=== PATIENT | female | born 1960 | race Caucasian/White ===

== ENCOUNTER 2023-11-02 15:32 | Emergency (ER) | payer MEDICARE, OTHER ==
[2023-11-02] MEDS ORDERED: Ondansetron PF 4 MG/2 ML Vial ONE (17:06)
[2023-11-02 17:57] LABS: #Basophils 0.02 10x3/uL (0.0-0.2); #Eosinphils 0.02 10x3/uL (0.0-0.5); #Monocytes 0.74 10x3/uL (0.0-1.1); #Neutrophils 5.39 10x3/uL (1.5-8.4); %Basophils 0.2 % (0.0-2.0); %Eosinophils 0.2 % (0.0-6.0); %Lymphocytes 31.3 % (18.0-47.0); %Monocytes 8.2 % (0.0-10.0); %Neutrophils 59.9 % (40.0-75.0); Hematocrit 32.6 % (34.9-44.5); Hemoglobin 10.2 g/dL (12.0-15.5); Mean Corpuscular HGB CONC 31.3 g/dL (32.0-36.0); Mean Corpuscular Hemoglobin 24.4 pg (27.0-33.0); Platelet Count 194 10x3/uL (150-450); RBC Distribution Width 16.4 % (11.5-14.5); Red Blood Cell (RBC) Count 4.18 10x6/uL (3.90-5.03)
[2023-11-02 18:09] LABS: ALT (SGPT) 26 U/L (8-55); AST (SGOT) 56 U/L (5-34); Albumin 3.4 g/dL (3.4-4.8); Alkaline Phosphatase 70 U/L (40-110); Anion Gap 16 mmol/L (10-20); BUN (Urea Nitrogen) 4 mg/dL (9.8-20.1); Bilirubin, Total 0.5 mg/dL (0.2-1.2); Calc. Creatinine Clearance 0 mL/min (70-130); Calcium 9.4 mg/dL (7.8-10.44); Carbon Dioxide 21 mmol/L (23-31); Chloride 108 mmol/L (98-107); Estimated GFR 94; Globulin 3.5 g/dL (2.4-3.5); Glucose 109 mg/dL (80-115); Lipase 38 U/L (8-78); Potassium 3.8 mmol/L (3.5-5.1); Protein, Total 6.9 g/dL (5.8-8.1); Sodium 141 mmol/L (136-145)
[2023-11-02] MEDS ORDERED: Lidocaine 2% Viscous 10 mL, Alum & Magn 30 mL SSW SCH (19:15)
[2023-11-02] MEDS ORDERED: Ketorolac Tromethamine 30 MG (1 mL) VIAL ONE (19:20)
[2023-11-02 19:46] LABS: Troponin I Less than 0.010 ng/mL (< 0.028)
== END 2023-11-02 19:30 | disposition home or self-care (01) ==
LOC: CSHERS 15:32
DX: K52.9 Noninfective gastroenteritis and colitis, unspecified (principal); I10 Essential (primary) hypertension; F17.210 Nicotine dependence, cigarettes, uncomplicated; Z55.6 Problems related to health literacy
CPT/HCPCS: 71045; 76705; 80053; 83690; 84484; 85025; 93005; 96374; 96375; 99284; J1885; J2405

== ENCOUNTER 2025-03-23 21:33 | Inpatient (IN) | payer MEDICARE ==
[2025-03-23 23:17] LABS: #Basophils Less than 0.03 10x3/uL (0.0-0.2); #Eosinophils Less than 0.03 10x3/uL (0.0-0.5); #Monocytes 0.29 10x3/uL (0.0-1.1); #Neutrophils 6.09 10x3/uL (1.5-8.4); %Basophils 0.3 % (0.0-2.0); %Eosinophils 0.0 % (0.0-6.0); %Lymphocytes 4.3 % (18.0-47.0); %Monocytes 4.3 % (0.0-10.0); %Neutrophils 90.8 % (40.0-75.0); Hematocrit 48.0 % (34.9-44.5); Hemoglobin 15.6 g/dL (12.0-15.5); Mean Corpuscular Hemoglobin 29.8 pg (27.0-33.0); Mean Corpuscular Volume 91.8 fL (81.6-98.3); Platelet Count 104 10x3/uL (150-450); Red Blood Cell (RBC) Count 5.23 10x6/uL (3.90-5.03); White Blood Cell (WBC) Count 6.71 10x3/uL (3.5-10.5)
[2025-03-23 23:24] LABS: Actual Bicarbonate (HCO3a) 25.8 mEq/L (22-28); Analyzer IN Cardio CS ICU; Base Excess (BEa) 1.1 mEq/L (-2.0 to +3.0); CO2 Tension 41.1 mmHg (35.0-45.0); Calcium, Ionized (arterial) 1.15 mmol/L (1.12-1.30); Hematocrit-ABG 47 % (36.0-47.0); Hemoglobin (Hb) 16.1 g/dL (12.0-16.0); O2 Tension (PaO2), arterial 82.0 mmHg (> 80.0); Potassium - ABG Lab 3.22 mmol/L (3.70-5.30); Puncture Site Left Brachial artery; pH, Arterial 7.415 (7.35-7.45)
[2025-03-23 23:30] LABS: ALT (SGPT) 18 U/L (Less than 34); AST (SGOT) 34 U/L (11-34); Albumin 4.0 g/dL (3.1-4.5); Alkaline Phosphatase 75 U/L (40-110); Anion Gap 15 mmol/L (10-20); BUN (Urea Nitrogen) 7 mg/dL (9.8-20.1); Bilirubin, Total 0.9 mg/dL (0.3-1.2); Calc. Creatinine Clearance 0 mL/min (70-130); Calcium 8.7 mg/dL (7.8-10.44); Carbon Dioxide 26 mmol/L (23-31); Chloride 105 mmol/L (98-107); Globulin 2.8 g/dL (2.4-3.5); Glucose 129 mg/dL (80-115); Potassium 3.4 mmol/L (3.5-5.1); Sodium 143 mmol/L (136-145)
[2025-03-23 23:34] LABS: Troponin I Less than 0.010 ng/mL (< 0.028)
[2025-03-23] MEDS ORDERED: Oseltamivir 75 MG CAP ONE (23:58)
[2025-03-24] MEDS ORDERED: Acetaminophen 325 MG TAB PO PRN (00:31)
[2025-03-24] MEDS ORDERED: Ondansetron PF 4 MG/2 ML Vial IVP PRN (00:31)
[2025-03-24] MEDS ORDERED: Senokot S 8.6-50 MG TAB PO PRN (00:31)
[2025-03-24] MEDS ORDERED: Calcium Carbonate 500 MG ChewTAB PO PRN (00:31)
[2025-03-24] MEDS ORDERED: Benzonatate 100 MG CAP ONE ×3 (01:41→14:42)
[2025-03-24] MEDS: Guaifenesin DM 100-10/5 ML UDCUP PO SCH (01:59)
[2025-03-24] MEDS: Benzonatate 100 MG CAP PO SCH ×2 (01:59→09:11)
[2025-03-24 04:57] LABS: Anion Gap 14 mmol/L (10-20); BUN (Urea Nitrogen) 7 mg/dL (9.8-20.1); Calc. Creatinine Clearance 97 mL/min (70-130); Calcium 8.4 mg/dL (7.8-10.44); Carbon Dioxide 25 mmol/L (23-31); Chloride 107 mmol/L (98-107); Glucose 189 mg/dL (80-115); Potassium 3.5 mmol/L (3.5-5.1); Sodium 142 mmol/L (136-145)
[2025-03-24] MEDS: Mometasone 200 MCG/Formoterol 5 MCG 60 PUFF INHALER INH SCH (06:45)
[2025-03-24] MEDS ORDERED: Enoxaparin 40 MG (0.4 mL) SYRINGE ONE (08:48)
[2025-03-24] MEDS ORDERED: Pantoprazole 40 MG DR.TAB ONE (08:48)
[2025-03-24] MEDS ORDERED: ALPRAZolam 0.5 MG TAB ONE (08:48)
[2025-03-24] MEDS: ALPRAZolam 0.5 MG TAB PO SCH (09:11)
[2025-03-24] MEDS: Enoxaparin 40 MG (0.4 mL) SYRINGE SC SCH (09:12)
[2025-03-24] MEDS: Pantoprazole 40 MG DR.TAB PO SCH (09:13)
[2025-03-24] MEDS ORDERED: Oseltamivir 75 MG CAP ONE (11:12)
[2025-03-24] MEDS: Oseltamivir 75 MG CAP PO SCH (11:19)
[2025-03-24 12:06] LABS: Legionella Urinary Ag Negative (Negative); Strep pneumo Urine Ag NEGATIVE (NEGATIVE)
[2025-03-24] MEDS: Guaifenesin DM 100-10/5 ML UDCUP PO PRN (13:19)
[2025-03-24] MEDS: Non-Formulary Medication 1 EACH (Mecobalamin [B12 Active] 1,000 MCG Tab.Chew) PO SCH (13:23)
[2025-03-24] MEDS ORDERED: Furosemide 40 MG (4 mL) VIAL ONE (13:35)
[2025-03-24] MEDS ORDERED: Azithromycin 250 MG TAB ONE (14:41)
[2025-03-24] MEDS: Azithromycin 250 MG TAB PO SCH (15:12)
[2025-03-24] MEDS: Acetaminophen W/ Codeine 5 ML UDCUP PO PRN (17:31)
[2025-03-24] MEDS: ALPRAZolam 0.5 MG TAB PO PRN (21:28)
[2025-03-24] MEDS: Acetaminophen W/ Codeine 5 ML UDCUP PO SCH (21:30)
[2025-03-25] MEDS: PNEUMOC 20-VAL CONJ-DIP CRM/PF 0.5 ML SYRINGE IM ONE (02:49)
[2025-03-25] MEDS: Benzonatate 100 MG CAP PO SCH (17:06)
[2025-03-26 04:41] LABS: Anion Gap 10 mmol/L (10-20); BUN (Urea Nitrogen) 15 mg/dL (9.8-20.1); Calc. Creatinine Clearance 96 mL/min (70-130); Calcium 8.7 mg/dL (7.8-10.44); Carbon Dioxide 27 mmol/L (23-31); Chloride 109 mmol/L (98-107); Glucose 108 mg/dL (80-115); Potassium 4.4 mmol/L (3.5-5.1); Sodium 142 mmol/L (136-145)
[2025-03-26 04:45] LABS: #Basophils Less than 0.03 10x3/uL (0.0-0.2); #Eosinophils Less than 0.03 10x3/uL (0.0-0.5); #Monocytes 0.56 10x3/uL (0.0-1.1); #Neutrophils 6.01 10x3/uL (1.5-8.4); %Basophils 0.0 % (0.0-2.0); %Eosinophils 0.1 % (0.0-6.0); %Lymphocytes 16.9 % (18.0-47.0); %Monocytes 7.1 % (0.0-10.0); %Neutrophils 75.8 % (40.0-75.0); Hematocrit 45.3 % (34.9-44.5); Hemoglobin 14.5 g/dL (12.0-15.5); Mean Corpuscular Hemoglobin 30.3 pg (27.0-33.0); Mean Corpuscular Volume 94.8 fL (81.6-98.3); Platelet Count 110 10x3/uL (150-450); Red Blood Cell (RBC) Count 4.78 10x6/uL (3.90-5.03); White Blood Cell (WBC) Count 7.93 10x3/uL (3.5-10.5)
[2025-03-26] MEDS: HYDROcodone/Acetaminophen 5/325 mg Tablet PO PRN (09:16)
[2025-03-26] MEDS ORDERED: LevoFLOXacin 500 mg/D5W 500 MG in Premix 1 BAG IVPB SCH (13:00)
[2025-03-26] MEDS: LevoFLOXacin 500 mg/D5W 500 MG in Premix 1 BAG IVPB SCH (13:43)
[2025-03-26] MEDS: Lidocaine/Transparent Dressing 1 EACH KIT TP SCH ×2 (15:36→20:00)
[2025-03-26 17:17] LABS: Troponin I 0.031 ng/mL (< 0.028)
[2025-03-26 19:12] LABS: Troponin I Less than 0.010 ng/mL (< 0.028)
[2025-03-26 21:36] LABS: Troponin I Less than 0.010 ng/mL (< 0.028)
[2025-03-27 05:16] LABS: #Basophils Less than 0.03 10x3/uL (0.0-0.2); #Eosinophils Less than 0.03 10x3/uL (0.0-0.5); #Monocytes 0.65 10x3/uL (0.0-1.1); #Neutrophils 5.07 10x3/uL (1.5-8.4); %Basophils 0.1 % (0.0-2.0); %Eosinophils 0.0 % (0.0-6.0); %Lymphocytes 23.5 % (18.0-47.0); %Monocytes 8.6 % (0.0-10.0); %Neutrophils 67.4 % (40.0-75.0); Hematocrit 48.0 % (34.9-44.5); Hemoglobin 15.3 g/dL (12.0-15.5); Mean Corpuscular Hemoglobin 30.1 pg (27.0-33.0); Mean Corpuscular Volume 94.3 fL (81.6-98.3); Platelet Count 107 10x3/uL (150-450); Red Blood Cell (RBC) Count 5.09 10x6/uL (3.90-5.03); White Blood Cell (WBC) Count 7.53 10x3/uL (3.5-10.5)
[2025-03-27 05:23] LABS: Anion Gap 12 mmol/L (10-20); BUN (Urea Nitrogen) 13 mg/dL (9.8-20.1); Calc. Creatinine Clearance 94 mL/min (70-130); Calcium 8.7 mg/dL (7.8-10.44); Carbon Dioxide 25 mmol/L (23-31); Chloride 107 mmol/L (98-107); Glucose 163 mg/dL (80-115); Potassium 3.6 mmol/L (3.5-5.1); Sodium 140 mmol/L (136-145)
[2025-03-28 04:26] LABS: #Basophils Less than 0.03 10x3/uL (0.0-0.2); #Eosinophils Less than 0.03 10x3/uL (0.0-0.5); #Monocytes 0.50 10x3/uL (0.0-1.1); #Neutrophils 3.44 10x3/uL (1.5-8.4); %Basophils 0.2 % (0.0-2.0); %Eosinophils 0.2 % (0.0-6.0); %Lymphocytes 34.6 % (18.0-47.0); %Monocytes 8.2 % (0.0-10.0); %Neutrophils 56.5 % (40.0-75.0); Hematocrit 45.8 % (34.9-44.5); Hemoglobin 14.7 g/dL (12.0-15.5); Mean Corpuscular Hemoglobin 29.9 pg (27.0-33.0); Mean Corpuscular Volume 93.1 fL (81.6-98.3); Platelet Count 101 10x3/uL (150-450); Red Blood Cell (RBC) Count 4.92 10x6/uL (3.90-5.03); White Blood Cell (WBC) Count 6.09 10x3/uL (3.5-10.5)
[2025-03-28 04:38] LABS: Anion Gap 11 mmol/L (10-20); BUN (Urea Nitrogen) 14 mg/dL (9.8-20.1); Calc. Creatinine Clearance 86 mL/min (70-130); Calcium 8.6 mg/dL (7.8-10.44); Carbon Dioxide 27 mmol/L (23-31); Chloride 109 mmol/L (98-107); Glucose 90 mg/dL (80-115); Potassium 3.8 mmol/L (3.5-5.1); Sodium 143 mmol/L (136-145)
[2025-03-28] MEDS: Acetaminophen 325 MG TAB PO PRN (15:56)
[2025-03-28] MEDS ORDERED: guaiFENesin/Codeine Phosphate 100 mg/10 mg 5 ml UD Cup PO PRN (18:13)
[2025-03-29 05:44] LABS: Platelet Count 100 10x3/uL (150-450)
[2025-03-29 05:45] LABS: #Basophils Less than 0.03 10x3/uL (0.0-0.2); #Eosinophils Less than 0.03 10x3/uL (0.0-0.5); #Monocytes 0.53 10x3/uL (0.0-1.1); #Neutrophils 3.11 10x3/uL (1.5-8.4); %Basophils 0.2 % (0.0-2.0); %Eosinophils 0.3 % (0.0-6.0); %Lymphocytes 38.5 % (18.0-47.0); %Monocytes 8.9 % (0.0-10.0); %Neutrophils 51.9 % (40.0-75.0); Hematocrit 47.5 % (34.9-44.5); Hemoglobin 15.2 g/dL (12.0-15.5); Mean Corpuscular Hemoglobin 29.4 pg (27.0-33.0); Mean Corpuscular Volume 91.9 fL (81.6-98.3); Red Blood Cell (RBC) Count 5.17 10x6/uL (3.90-5.03); White Blood Cell (WBC) Count 5.98 10x3/uL (3.5-10.5)
[2025-03-29 05:48] LABS: Anion Gap 11 mmol/L (10-20); BUN (Urea Nitrogen) 13 mg/dL (9.8-20.1); Calc. Creatinine Clearance 90 mL/min (70-130); Calcium 9.2 mg/dL (7.8-10.44); Carbon Dioxide 27 mmol/L (23-31); Chloride 107 mmol/L (98-107); Glucose 100 mg/dL (80-115); Potassium 3.7 mmol/L (3.5-5.1); Sodium 141 mmol/L (136-145)
[2025-03-29] MEDS: Colchicine 0.6 MG TAB PO SCH ×2 (13:16→21:05)
[2025-03-29] MEDS: guaiFENesin/Codeine Phosphate 100 mg/10 mg 5 ml UD Cup PO SCH (15:15)
[2025-03-30 04:25] LABS: #Basophils Less than 0.03 10x3/uL (0.0-0.2); #Eosinophils 0.03 10x3/uL (0.0-0.5); #Monocytes 0.62 10x3/uL (0.0-1.1); #Neutrophils 3.92 10x3/uL (1.5-8.4); %Basophils 0.0 % (0.0-2.0); %Eosinophils 0.4 % (0.0-6.0); %Lymphocytes 33.7 % (18.0-47.0); %Monocytes 9.0 % (0.0-10.0); %Neutrophils 56.6 % (40.0-75.0); Platelet Count 101 10x3/uL (150-450)
[2025-03-30 04:26] LABS: Hematocrit 48.3 % (34.9-44.5); Hemoglobin 15.8 g/dL (12.0-15.5); Mean Corpuscular Hemoglobin 29.8 pg (27.0-33.0); Mean Corpuscular Volume 91.1 fL (81.6-98.3); Red Blood Cell (RBC) Count 5.30 10x6/uL (3.90-5.03); White Blood Cell (WBC) Count 6.92 10x3/uL (3.5-10.5)
[2025-03-30 04:41] LABS: Anion Gap 15 mmol/L (10-20); BUN (Urea Nitrogen) 12 mg/dL (9.8-20.1); Calc. Creatinine Clearance 91 mL/min (70-130); Calcium 9.5 mg/dL (7.8-10.44); Carbon Dioxide 26 mmol/L (23-31); Chloride 106 mmol/L (98-107); Glucose 105 mg/dL (80-115); Potassium 3.7 mmol/L (3.5-5.1); Sodium 143 mmol/L (136-145)
[2025-03-30 13:45] VITALS: BP 116/69; TEMP 98.7
== END 2025-03-30 14:27 | disposition home or self-care (01) | DRG 193 ==
LOC: CSHERS 21:33 → OBSVTOIN 03-24 00:32 → CSHERHOLD 03-24 00:32 → CSHTELE 03-24 20:04
PROVIDERS: ADMIT Student in an Organized Health Care Education/Training Program; ATTEND Hospitalist
PROC: 3E03329 Introduction of Other Anti-infective into Peripheral Vein, Percutaneous Approach (ICD-10-PCS; principal; 2025-03-24)
PROC: 0T9B70Z Drainage of Bladder with Drainage Device, Via Natural or Artificial Opening (ICD-10-PCS; 2025-03-27)
DX: J10.01 Influenza due to other identified influenza virus with the same other identified influenza virus pneumonia (principal); J96.01 Acute respiratory failure with hypoxia; J44.1 Chronic obstructive pulmonary disease with (acute) exacerbation; E03.9 Hypothyroidism, unspecified; E87.6 Hypokalemia; D69.59 Other secondary thrombocytopenia; F41.9 Anxiety disorder, unspecified; K21.9 Gastro-esophageal reflux disease without esophagitis; F17.210 Nicotine dependence, cigarettes, uncomplicated; Z95.0 Presence of cardiac pacemaker; Z98.890 Other specified postprocedural states; T38.0X5A Adverse effect of glucocorticoids and synthetic analogues, initial encounter; Z88.8 Allergy status to other drugs, medicaments and biological substances; Z88.0 Allergy status to penicillin; Z88.2 Allergy status to sulfonamides; Z79.899 Other long term (current) drug therapy; Z79.890 Hormone replacement therapy
CPT/HCPCS: 36415; 36416; 36600; 71045; 71110; 71250; 80048; 80053; 82550; 82805; 83605; 83880; 84145; 84484; 85025; 86140; 87428; 87449; 87899; 93005; 93306; 94640; 94664; 94760; 94762; J1650; J1940; J1956; J2919; P9047